=== PATIENT | female | born 1945 | race Caucasian/White ===

== ENCOUNTER 2018-03-28 05:27 | Inpatient (IN) | payer MEDICARE, BC ==
[~2018-03-28] VITALS: Ht 152.4 cm; Wt 54.4 kg
[~2018-03-28 05:27] MED LIST: ATOR40TA78 PO; CALC1CAP8 PO; CHOL5000 PO; GABA300C PO
[2018-03-28] MEDS ORDERED: LACTATED RINGERS 1,000 ML IV SCH (06:03)
[2018-03-28] MEDS ORDERED: BUPIVACAINE/PF-EPI 0.5% 1:200K ONE (06:09)
[2018-03-28] MEDS ORDERED: THROMBIN 5,000 UNIT VIAL TP ONE (06:09)
[2018-03-28] MEDS ORDERED: BACITRACIN 50,000 UNIT ONE (06:10)
[2018-03-28] MEDS ORDERED: BACITRACIN/POLYMIXIN B SULFATE OINT 14 GM ONE (06:10)
[2018-03-28 06:35] VITALS: BP 138/82
[2018-03-28] MEDS ORDERED: GABAPENTIN 300 MG CAPSULE PO ONE (07:00)
[2018-03-28] MEDS ORDERED: ONDANSETRON ODT 8 MG PO ONE (07:00)
[2018-03-28] MEDS ORDERED: ACETAMINOPHEN 500 MG TABLET PO ONE (07:00)
[2018-03-28] MEDS ORDERED: LIDOCAINE JELLY 2%, 30GM ONE (07:01)
[2018-03-28] MEDS ORDERED: FENTANYL PF 250 MCG/5ML ONE (07:02)
[2018-03-28] MEDS ORDERED: PHENYLEPHRINE 10 MG/ML ONE (07:32)
[2018-03-28] MEDS ORDERED: GLYCOPYRROLATE 0.2MG/1ML, 5ML ONE (08:24)
[2018-03-28] MEDS ORDERED: NEOSTIGMINE 1 MG/ML, 10ML ONE (08:24)
[2018-03-28] MEDS ORDERED: DEXAMETHASONE 4 MG/ML, 1ML ONE (08:24)
[2018-03-28] MEDS ORDERED: LIDOCAINE-MPF 2% ,5ML ONE (08:24)
[2018-03-28] MEDS ORDERED: PROPOFOL 10 MG/ML, 20ML ONE (08:24)
[2018-03-28] MEDS ORDERED: CEFAZOLIN 1,000 MG ONE (08:24)
[2018-03-28] MEDS ORDERED: ROCURONIUM 10MG/ML,5ML ONE (08:24)
[2018-03-28] MEDS ORDERED: SUCCINYLCHOLINE 20 MG/ML, 10ML ONE (08:24)
[2018-03-28] MEDS ORDERED: ALBUTEROL/IPRATROPIUM 2.5MG/0.5MG, 3 ML NPPB PRN (08:30)
[2018-03-28] MEDS ORDERED: LABETALOL 5MG/ML, 20ML IV PRN ×2 (08:30→12:00)
[2018-03-28] MEDS ORDERED: ONDANSETRON 2MG/ML, 2ML IV PRN ×2 (08:30→12:00)
[2018-03-28] MEDS ORDERED: FENTANYL PF 100 MCG/2ML IV PRN (08:30)
[2018-03-28] MEDS ORDERED: OXYcodone 5 MG/5 ML ORAL.SOL UDC PO PRN (08:30)
[2018-03-28] MEDS ORDERED: EPHEDRINE 50 MG/ML, 1ML IM PRN (08:30)
[2018-03-28] MEDS ORDERED: MIDAZOLAM 1 MG/ML, 2ML IV PRN (08:30)
[2018-03-28] MEDS ORDERED: OXYcodone 5 MG/5 ML ORAL.SOL UDC ONE (10:09)
[2018-03-28] MEDS ORDERED: HYDROmorphone 2 MG/ML, 1ML ONE (10:09)
[2018-03-28] MEDS: HYDROmorphone 2 MG/ML, 1ML IVPush PRN ×2 (10:13→10:37)
[2018-03-28] MEDS ORDERED: PROPOFOL 50 ML ONE (10:45)
[2018-03-28] MEDS ORDERED: KETOROLAC 30 MG/1 ML ONE (11:14)
[2018-03-28] MEDS ORDERED: KETOROLAC 30 MG/1 ML IVPush ONE (11:30)
[2018-03-28] MEDS ORDERED: HYDROcodone/APAP 10/325 MG TABLET PO PRN (12:00)
[2018-03-28] MEDS ORDERED: DIPHENHYDRAMINE 50 MG CAPSULE PO PRN (12:00)
[2018-03-28] MEDS ORDERED: BISACODYL 10 MG SUPP PR PRN (12:00)
[2018-03-28] MEDS ORDERED: MAGNESIUM HYDROXIDE 8%, 30ML UDC PO PRN (12:00)
[2018-03-28] MEDS ORDERED: DIPHENHYDRAMINE 50 MG/ML, 1ML IM PRN (12:00)
[2018-03-28] MEDS: GABAPENTIN MC SCH ×2 (12:00→20:00)
[2018-03-28] MEDS ORDERED: METHOCARBAMOL 750 MG TABLET PO PRN (12:00)
[2018-03-28] MEDS ORDERED: PROMETHAZINE 25 MG/ML, 1ML IM PRN (12:00)
[2018-03-28 14:46] VITALS: BP 102/70
[2018-03-28] MEDS: NS + 20MEQ KCL 1,000 ML IV SCH (14:52)
[2018-03-28] MEDS ORDERED: CEFAZOLIN PMX 1GM/50ML 50 ML IVPB SCH (15:00)
[2018-03-28] MEDS ORDERED: CEFAZOLIN 1,000 MG in SODIUM CHLORIDE 0.9% 50 ML IVPB SCH (15:00)
[2018-03-28 20:00] VITALS: BP 109/69
[2018-03-28] MEDS: KETOROLAC 30 MG/1 ML IV SCH (20:29)
[2018-03-28] MEDS: ATORVASTATIN 40 MG TABLET PO SCH (20:29)
[2018-03-29 01:39] VITALS: BP 96/57
[2018-03-29] MEDS: NS + 20MEQ KCL 1,000 ML IV SCH ×2 (02:30→15:00)
[2018-03-29] MEDS: KETOROLAC 30 MG/1 ML IV SCH ×3 (03:48→20:04)
[2018-03-29] MEDS: GABAPENTIN MC SCH ×3 (03:49→20:00)
[2018-03-29 04:13] VITALS: BP 104/58
[2018-03-29 06:56] VITALS: BP 116/70
[2018-03-29] MEDS: CHOLECALCIFEROL 5,000u TAB PO SCH (10:47)
[2018-03-29] MEDS: SENNA/DOCUSATE TABLET PO SCH (10:47)
[2018-03-29] MEDS: CALCIUM/VITAMIN D3 250-125 TABLET PO SCH (10:47)
[2018-03-29 13:31] VITALS: BP 109/60
[2018-03-29 19:45] VITALS: BP 120/69
[2018-03-29] MEDS: ATORVASTATIN 40 MG TABLET PO SCH (20:03)
[2018-03-30 02:00] VITALS: BP 103/64
[2018-03-30] MEDS: NS + 20MEQ KCL 1,000 ML IV SCH (03:30)
[2018-03-30] MEDS: GABAPENTIN MC SCH ×2 (04:00→12:00)
[2018-03-30] MEDS: KETOROLAC 30 MG/1 ML IV SCH (04:26)
[2018-03-30] MEDS ORDERED: MELO7.5T31 PO (08:09)
[2018-03-30] MEDS ORDERED: TIZA2CAP PO (08:09)
[2018-03-30] MEDS ORDERED: HYDR-3240 PO (08:09)
[2018-03-30 08:16] VITALS: BP 122/75
[2018-03-30] MEDS: CHOLECALCIFEROL 5,000u TAB PO SCH (09:57)
[2018-03-30] MEDS: CALCIUM/VITAMIN D3 250-125 TABLET PO SCH (09:57)
[2018-03-30] MEDS: SENNA/DOCUSATE TABLET PO SCH (09:57)
== END 2018-03-30 15:42 | disposition home or self-care (01) | DRG 515 ==
LOC: OUT 05:27 → 4NOR 11:20 → OUT 22:54 → 4NOR 22:55
PROVIDERS: ADMIT Neurological Surgery; ATTEND Neurological Surgery
PROC: 01NB0ZZ Release Lumbar Nerve, Open Approach (ICD-10-PCS; principal; 2018-03-28 07:00)
DX: M48.062 Spinal stenosis, lumbar region with neurogenic claudication (principal); G93.41 Metabolic encephalopathy; E78.00 Pure hypercholesterolemia, unspecified; M06.9 Rheumatoid arthritis, unspecified; E78.5 Hyperlipidemia, unspecified; Z85.3 Personal history of malignant neoplasm of breast; Z90.710 Acquired absence of both cervix and uterus; Z82.61 Family history of arthritis; Z87.891 Personal history of nicotine dependence; M47.26 Other spondylosis with radiculopathy, lumbar region
CPT/HCPCS: 72100; G0378; J0690; J1100; J1170; J1885; J2704; J2710; J3010; J3480; J3490; Q0162; J0330; J2370; J7120